=== PATIENT | female | born 1995 | race Caucasian/White ===

== ENCOUNTER 2021-09-25 12:50 | Emergency (ER) | payer OTHER ==
[~2021-09-25] VITALS: Ht 157.5 cm; Wt 56.7 kg
--- NOTE | 2021-09-25 13:00 | NUR ---
Francine salamanca in [facility] - 09/25/21 at 1324 by TORSTEN Called to room pt NO respons- Eloped
--- NOTE | 2021-09-25 13:10 | NUR ---
Francine salamanca in [facility] - 09/25/21 at 1324 by TORSTEN Called- No response- Eloped
[2021-09-25 13:22] VITALS: BP 100/71
--- NOTE | 2021-09-25 13:22 | NUR ---
Francine salamanca in [facility] - 09/25/21 at 1324 by TORSTEN Called- No response. Ghanshyam
--- NOTE | 2021-09-25 14:20 | NUR ---
SEEN AND EXAMINED BY .
--- NOTE | 2021-09-25 14:38 | NUR ---
Patient discharged to home in stable condition. Written and verbal after care instructions given. Patient verbalizes understanding of instruction.
== END 2021-09-25 14:38 | disposition home or self-care (01) ==
LOC: ER 12:55
DX: R55 Syncope and collapse (principal); R00.2 Palpitations
CPT/HCPCS: 82962-TC